=== PATIENT | male | born 1990 | race Two or more races ===

== ENCOUNTER 2019-05-30 07:32 | Day surgery (SDC) | payer OTHER | END 2019-05-30 13:50 | disposition home or self-care (01) | LOC: AMB-ENDOS 07:32 → ADM 13:00 → AMB-ENDOS 13:00 | DX: D13.2 Benign neoplasm of duodenum (principal); K64.1 Second degree hemorrhoids ==

== ENCOUNTER 2022-09-15 13:29 | Inpatient (IN) | payer OTHER ==
[~2022-09-15] VITALS: Ht 172.7 cm; Wt 93.0 kg
--- NOTE | 2022-09-15 13:37 | NUR ---
LLEGA PTE EN AMBULANCIA POR ABCESO ANAL . PTE QUE EL DR,TOUS LE REALIZO PROCEDIMINETO. SE LE DEVON S/V Y SE ACOMODA EN TOYIN.
--- NOTE | 2022-09-15 14:33 | NUR ---
SE ORIENTA PTE SOBRE TX A SEGUIR, EL CUAL REFIERE ENTENDER. SE COLECTAN MUESTRAS UTILIZANDO MEDIDAS ASEPTICAS. SE ADM. MEDICAMENTOS MACY ORDEN MEDICA BAJO MEDIDAS ASEPTICAS
[2022-09-21] MEDS ORDERED: INTESTINEX680 M2 PO (15:07)
[2022-09-21] MEDS ORDERED: PEPCID AC20 MG PO (15:07)
== END 2022-09-21 17:56 | disposition home or self-care (01) | DRG 386 ==
LOC: ER 13:29 → SURH 14:55
PROVIDERS: ADMIT Colon & Rectal Surgery; ATTEND Colon & Rectal Surgery
PROC: BW3GY0Z Magnetic Resonance Imaging (MRI) of Pelvic Region using Other Contrast, Unenhanced and Enhanced (ICD-10-PCS; 2022-09-17)
PROC: BW21YZZ Computerized Tomography (CT Scan) of Abdomen and Pelvis using Other Contrast (ICD-10-PCS; principal; 2022-09-20)
DX: K50.113 Crohn's disease of large intestine with fistula (principal); K92.1 Melena; L02.31 Cutaneous abscess of buttock; K60.5 Anorectal fistula; K52.9 Noninfective gastroenteritis and colitis, unspecified
CPT/HCPCS: 72198

== ENCOUNTER 2023-04-03 11:15 | Inpatient (IN) | payer OTHER ==
[~2023-04-03 11:15] MED LIST: INTESTINEX680 M2 PO; PEPCID AC20 MG PO
[2023-04-10 13:13] LABS: HEMATOCRIT 39.3 % (39.0-48.0); HEMOGLOBIN 13.4 g/dL (13-16.00); MEAN CELL VOLUME 83.4 fL (80.0-100.00); MEAN CORPUSCULAR HEMOGLOBIN 28.4 pg (27.00-32.0); MEAN CORPUSCULAR HGB CONC 34.1 g/dl (32.0-36.0); PLATELET COUNT 212 K/uL (150-450); RED BLOOD COUNT 4.71 M/uL (4.00-6.00); RED CELL DISTRIBUTION WIDTH 15.4 % (11.5-14.5)
[2023-04-11 06:52] LABS: ALBUMIN 2.8 gm/dL (3.4-5.0); CALCIUM 8.5 mg/dL (8.5-10.1); CREATININE SERUM 0.92 mg/dL (0.70-1.30); GFR 94.17; MAGNESIUM 1.9 mg/dL (1.8-2.4); POTASSIUM 4.4 mEq/L (3.5-5.1)
[2023-04-11 06:57] LABS: HEMATOCRIT 38.2 % (39.0-48.0); HEMOGLOBIN 13.1 g/dL (13-16.00); MEAN CELL VOLUME 83.7 fL (80.0-100.00); MEAN CORPUSCULAR HEMOGLOBIN 28.7 pg (27.00-32.0); MEAN CORPUSCULAR HGB CONC 34.3 g/dl (32.0-36.0); PLATELET COUNT 228 K/uL (150-450); RED BLOOD COUNT 4.57 M/uL (4.00-6.00); RED CELL DISTRIBUTION WIDTH 15.3 % (11.5-14.5)
[2023-04-12 07:10] LABS: HEMATOCRIT 36.7 % (39.0-48.0); HEMOGLOBIN 12.6 g/dL (13-16.00); MEAN CORPUSCULAR HGB CONC 34.5 g/dl (32.0-36.0); PLATELET COUNT 211 K/uL (150-450); RED BLOOD COUNT 4.36 M/uL (4.00-6.00); RED CELL DISTRIBUTION WIDTH 15.7 % (11.5-14.5)
[2023-04-12 07:20] LABS: CALCIUM 8.6 mg/dL (8.5-10.1); CREATININE SERUM 0.91 mg/dL (0.70-1.30); GFR 95.37; MAGNESIUM 1.9 mg/dL (1.8-2.4); PHOSPHOROUS 2.7 mg/dL (2.5-4.9); POTASSIUM 3.97 mEq/L (3.5-5.1)
== END 2023-04-13 16:58 | disposition home or self-care (01) | DRG 330 ==
LOC: EDSTATUS 11:15 → ADM 11:15 → SURG 04-10 05:40 → SURH 04-10 05:40 → O/R 04-10 05:40 → SURG 04-10 11:00 → SURH 04-10 16:06
PROVIDERS: Internal Medicine Geriatric Medicine; ADMIT Colon & Rectal Surgery; ATTEND Colon & Rectal Surgery
PROC: 0WUF47Z Supplement Abdominal Wall with Autologous Tissue Substitute, Percutaneous Endoscopic Approach (ICD-10-PCS; 2023-04-10)
PROC: 3E0F7SF Introduction of Other Gas into Respiratory Tract, Via Natural or Artificial Opening (ICD-10-PCS; 2023-04-10)
PROC: 0DTH4ZZ Resection of Cecum, Percutaneous Endoscopic Approach (ICD-10-PCS; principal; 2023-04-10 11:00)
PROC: BW21YZZ Computerized Tomography (CT Scan) of Abdomen and Pelvis using Other Contrast (ICD-10-PCS; 2023-04-12)
DX: K50.113 Crohn's disease of large intestine with fistula (principal); K92.1 Melena; K52.89 Other specified noninfective gastroenteritis and colitis; K66.0 Peritoneal adhesions (postprocedural) (postinfection)

== ENCOUNTER 2023-12-23 19:59 | Emergency (ER) | payer OTHER ==
[~2023-12-23] VITALS: Ht 172.7 cm; Wt 86.2 kg
[2023-12-23] MEDS ORDERED: KETOROLAC TROMETHAMINE 30 MG VIAL ONE (20:20)
[2023-12-23] MEDS ORDERED: KETOROLAC TROMETHAMINE 30 MG VIAL IM ONE (20:30)
== END 2023-12-23 22:43 | disposition home or self-care (01) ==
LOC: ER 19:59
DX: S93.402A Sprain of unspecified ligament of left ankle, initial encounter (principal); W05.2XXA Fall from non-moving motorized mobility scooter, initial encounter; Y93.I9 Activity, other involving external motion; Y92.413 State road as the place of occurrence of the external cause